=== PATIENT | female | born 1935 | race Caucasian/White ===

== ENCOUNTER → 2017-04-05 | Outpatient (REF) | payer MEDICARE, OTHER ==
[~2017-04-05] MED LIST: ACET30TAB PO; ALBU1.25 INH; ALEN40TA PO; ASPI1TAB PO; BUDE0.5S6 INH; CALC600T31 PO; CALC600T7 PO; DOCU10CA PO; DOXY150C PO; KEFL500C17 PO; MAGN1TAB25 PO; MAGN400T2 PO; MUCI600T37 PO; OMEP20CA3 PO; OMEP40CA2 PO; PERF20NE2 INH; PRED10PA PO; SIMV20TA2 PO; VESI10TA2 PO
[2017-04-05 19:48] LABS: PERCENT SATURATION 12.9 % (13.2-45.0)
== END ==
LOC: M LAB REF 17:35
PROVIDERS: ATTEND Internal Medicine
DX: D64.9 Anemia, unspecified (principal)

== ENCOUNTER → 2017-04-26 | Outpatient (REF) | payer MEDICARE, OTHER | LOC: M LAB REF 17:47 | PROVIDERS: ATTEND Internal Medicine | DX: D50.9 Iron deficiency anemia, unspecified (principal); R62.7 Adult failure to thrive; L29.8 Other pruritus ==

== ENCOUNTER → 2017-05-26 | Outpatient (REF) | payer MEDICARE, OTHER | LOC: M LAB REF 14:40 | DX: N60.32 Fibrosclerosis of left breast (principal) | CPT/HCPCS: 88305 ==

== ENCOUNTER 2017-06-14 13:03 | Emergency (ER) | payer MEDICARE, OTHER ==
[2017-06-14 14:21] LABS: BASO # 0.1 10^3/uL (0.0-0.2); BASO % 0.5 % (0.0-1.0); EOS # 0.8 10^3/uL (0.0-0.50); EOS % 5.9 % (0.0-3.0); HEMATOCRIT 40.9 % (36.0-47.0); HEMOGLOBIN 13.1 g/dl (12.0-16.0); IMMATURE GRANULOCYTE # 0.1 10^3/uL (0-0); IMMATURE GRANULOCYTE % 0.6 % (0-0); LYMPH % 22.2 % (24.0-44.0); MEAN CORPUSCULAR HEMOGLOBIN 27.5 pg (27.0-33.0); MEAN CORPUSCULAR VOLUME 85.7 fl (80.0-96.0); MONO % 7.4 % (0.0-5.0); NEUTROPHILS # 8.6 10^3/uL (1.8-7.7); NEUTROPHILS % 63.4 % (36.0-66.0); PLATELET COUNT, AUTOMATED 280 10^3/uL (150-450); RED BLOOD COUNT 4.77 10^6/uL (4.00-5.40); RED CELL DISTRIBUTION WIDTH 15.2 % (11.5-14.5); WHITE BLOOD COUNT 13.6 10^3/uL (4.0-10.0)
[2017-06-14 14:37] LABS: ANION GAP 3 MEQ/L (8-16); BLOOD UREA NITROGEN 17 MG/DL (7-18); CALCIUM LEVEL 8.7 MG/DL (8.8-10.2); CARBON DIOXIDE LEVEL 33 MEQ/L (21-32); CHLORIDE LEVEL 106 MEQ/L (98-107); CREATININE FOR GFR 0.75 MG/DL (0.55-1.30); GLOMERULAR FILTRATION RATE > 60.0 (>32); GLUCOSE, FASTING 114 MG/DL (70-100); POTASSIUM SERUM 3.8 MEQ/L (3.5-5.1); SODIUM LEVEL 142 MEQ/L (136-145)
[2017-06-14] MEDS: CEFTRIAXONE SOD 1 GM in APPROPRIATE DILUENT 1 EA IV (15:04)
== END 2017-06-14 16:19 | disposition home or self-care (01) ==
LOC: M ED 13:03
DX: L03.114 Cellulitis of left upper limb (principal); J44.9 Chronic obstructive pulmonary disease, unspecified; J45.909 Unspecified asthma, uncomplicated; Z79.82 Long term (current) use of aspirin; Z79.899 Other long term (current) drug therapy; Z88.1 Allergy status to other antibiotic agents
CPT/HCPCS: 80048

== ENCOUNTER 2017-06-15 05:43 | Emergency (ER) | payer MEDICARE, OTHER ==
[2017-06-15] MEDS: CEFTRIAXONE SOD 2 GM in APPROPRIATE DILUENT 1 EA IV (06:15)
== END 2017-06-15 07:19 | disposition home or self-care (01) ==
LOC: M ED 05:43
DX: Z51.89 Encounter for other specified aftercare (principal); L03.114 Cellulitis of left upper limb; J44.9 Chronic obstructive pulmonary disease, unspecified; K21.9 Gastro-esophageal reflux disease without esophagitis; Z87.891 Personal history of nicotine dependence; Z79.82 Long term (current) use of aspirin; Z79.899 Other long term (current) drug therapy; Z88.1 Allergy status to other antibiotic agents
CPT/HCPCS: 96374; 99284

== ENCOUNTER → 2017-06-21 | Outpatient (REF) | payer MEDICARE, OTHER ==
[2017-06-21 14:12] LABS: C REACTIVE PROTEIN QUANTITATIV < 0.30 MG/DL (0.00-0.30)
== END ==
LOC: M LAB REF 13:52
DX: L03.114 Cellulitis of left upper limb (principal)
CPT/HCPCS: 86140

== ENCOUNTER 2017-07-04 08:06 | Day surgery (SDC) | payer MEDICARE, OTHER ==
[~2017-07-04 08:06] MED LIST changes: -ACET30TAB PO; -ALBU1.25 INH; -ALEN40TA PO; -ASPI1TAB PO; -BUDE0.5S6 INH; -CALC600T31 PO; -CALC600T7 PO; -DOCU10CA PO; -DOXY150C PO; -KEFL500C17 PO; +LIDOCAINE 1% MDV 20ML VIAL As Ordered; +LIDOCAINE 2% INJ 100 MG/5 ML SDV (FOR ANES.) As Ordered; -MAGN1TAB25 PO; -MAGN400T2 PO; -MUCI600T37 PO; -OMEP20CA3 PO; -OMEP40CA2 PO; -PERF20NE2 INH; -PRED10PA PO; +PROPOFOL 200 MG/20 ML VIAL As Ordered; -SIMV20TA2 PO; -VESI10TA2 PO
[2017-07-04] MEDS ORDERED: NS 1,000 ML IV (09:45)
[2017-07-04] MEDS ORDERED: PROPOFOL 200 MG/20 ML VIAL As Ordered (10:19)
[2017-07-04] MEDS ORDERED: LIDOCAINE 1% MDV 20ML VIAL As Ordered (10:19)
[2017-07-04] MEDS ORDERED: GLYCOPYRROLATE INJ 0.2 MG/ML 2 ML VIAL As Ordered (10:30)
== END 2017-07-04 11:27 | disposition home or self-care (01) ==
LOC: M OPP 08:06
DX: D50.9 Iron deficiency anemia, unspecified (principal); K64.8 Other hemorrhoids; K57.30 Diverticulosis of large intestine without perforation or abscess without bleeding; K44.9 Diaphragmatic hernia without obstruction or gangrene; J45.909 Unspecified asthma, uncomplicated; K21.9 Gastro-esophageal reflux disease without esophagitis; Z78.0 Asymptomatic menopausal state; Z79.82 Long term (current) use of aspirin; Z79.899 Other long term (current) drug therapy; Z88.1 Allergy status to other antibiotic agents; Z91.048 Other nonmedicinal substance allergy status; Z87.891 Personal history of nicotine dependence
CPT/HCPCS: 45378

== ENCOUNTER → 2017-12-08 | Outpatient (REF) | payer MEDICARE, OTHER ==
[2017-12-08 20:42] LABS: ATYPICAL LYMPH 2 % (0-5); BANDS 2 % (< 11); BASOPHILS 2 % (0-4); EOSINOPHILS 1 % (0-5); LYMPHOCYTES 13 % (16-52); NEUTROPHILS 80 % (35-75)
[2017-12-08 20:44] LABS: PLATELET ESTIMATE NORMAL (NORMAL)
== END ==
LOC: M LAB REF 17:44
DX: D72.829 Elevated white blood cell count, unspecified (principal)
CPT/HCPCS: 85007

== ENCOUNTER 2018-08-28 09:56 | Inpatient (IN) | payer MEDICARE, OTHER ==
[~2018-08-28] VITALS: Ht 154.9 cm; Wt 81.1 kg
[~2018-08-28 09:56] MED LIST changes: +ACET-716 PO; +ALBU1.25 INH; +ALEN40TA2 PO; +ASPI81TA26 PO; +BUDE0.5S6 INH; +CALC600T31 PO; +CALC600T7 PO; +DOCU10CA PO; +DOXY150C PO; +FERR324T2 PO; +FISH500C PO; +GERI8.6T PO; +KEFL500C17 PO; -LIDOCAINE 1% MDV 20ML VIAL As Ordered; -LIDOCAINE 2% INJ 100 MG/5 ML SDV (FOR ANES.) As Ordered; +MAGN1TAB26 PO; +MAGN400T2 PO; +MUCI600T37 PO; +OMEP20CA3 PO; +OMEP40CA2 PO; +PERF20NE2 INH; +PRED10PA PO; -PROPOFOL 200 MG/20 ML VIAL As Ordered; +SIMV20TA2 PO; +SIMV40TA2 PO; +SPIR1CAP PO; +VESI10TA2 PO; +VITAMIN D 3 PO
[2018-08-28] MEDS ORDERED: methylPREDNISolone INJ 125 MG/2 ML VIAL (J2930) IV ONE (10:30)
--- NOTE | 2018-08-28 10:55 | REP ---
Portable chest x-ray: Single view. History: Dyspnea and cough. Comparison study: January 27, 2015. Findings: EKG monitoring electrodes overlie the chest. The heart is enlarged unchanged. Pulmonary vasculature is slightly cephalized. The left hemidiaphragm remains somewhat elevated. Pleural angles are sharp. Impression: Cardiomegaly. No infiltrates seen. Cephalization of the pulmonary vasculature. Electronically Signed by Niels Cruz MD 08/28/2018 10:46 A
[2018-08-28] MEDS: IPRATROPIUM 0.5MG/ALBUTEROL 2.5MG INH SOL UD 3ML (DUONEB)(J7620) NEB PRN ×2 (11:04→11:12)
[2018-08-28 11:06] LABS: BASO % 0.5 % (0.0-1.0); EOS # 0.5 10^3/uL (0.0-0.50); EOS % 6.4 % (0.0-3.0); HEMATOCRIT 39.8 % (36.0-47.0); HEMOGLOBIN 12.7 g/dl (12.0-15.5); LYMPH # 2.6 10^3/uL (1.5-4.5); LYMPH % 30.9 % (24.0-44.0); MEAN CORPUSCULAR HEMOGLOBIN 28.7 pg (27.0-33.0); MEAN CORPUSCULAR HGB CONC 31.9 g/dl (32.0-36.5); MONO # 0.7 10^3/uL (0.0-0.8); MONO % 7.9 % (0.0-5.0); NEUTROPHILS # 4.5 10^3/uL (1.8-7.7); NEUTROPHILS % 53.8 % (36.0-66.0); PLATELET COUNT, AUTOMATED 257 10^3/uL (150-450); RED BLOOD COUNT 4.42 10^6/uL (4.00-5.40); WHITE BLOOD COUNT 8.4 10^3/uL (4.0-10.0)
[2018-08-28 11:31] LABS: ABG BASE EXCESS 3.8 (-2.0-2.0); ABG O2 SATURATION 95.9 % (95.0-99.0); ABG PARTIAL PRESSURE O2 83.6 mmHg (75.0-100.0); ABG STANDARD HCO3 27.8 MEQ/L (22.0-26.0); ABG TOTAL CO2 30.4 MEQ/L (23.0-31.0); ABG pH (ARTERIAL) 7.417 UNITS (7.350-7.450)
[2018-08-28 11:43] LABS: INFLUENZA A AMPLIFICATION NEGATIVE (NEGATIVE); INFLUENZA B AMPLIFICATION NEGATIVE (NEGATIVE)
[2018-08-28 11:53] LABS: ALBUMIN 3.3 GM/DL (3.2-5.2); ALT/SGPT 20 U/L (12-78); BILIRUBIN,DIRECT < 0.1 MG/DL (0.0-0.2); BILIRUBIN,TOTAL 0.4 MG/DL (0.2-1.0); BLOOD UREA NITROGEN 7 MG/DL (7-18); CALCIUM LEVEL 9.1 MG/DL (8.8-10.2); CARBON DIOXIDE LEVEL 27 MEQ/L (21-32); CHLORIDE LEVEL 106 MEQ/L (98-107); GLOMERULAR FILTRATION RATE > 60.0 (>32); GLUCOSE, FASTING 93 MG/DL (70-100); NT-PRO BNP 71 PG/ML (<450); POTASSIUM SERUM 4.2 MEQ/L (3.5-5.1); SODIUM LEVEL 139 MEQ/L (136-145); TOTAL PROTEIN 6.8 GM/DL (6.4-8.2)
[2018-08-28 12:47] LABS: CPK CREATINE PHOSPHOKINASE 94 U/L (26-192); MB/CK RELATIVE INDEX 2.02 (< OR =4); TROPONIN I < 0.02 NG/ML (< 0.10)
[2018-08-28] MEDS ORDERED: ALBUTEROL SULFATE 2.5 MG/0.5 ML INH NEB SOLN NEB PRN (14:15)
[2018-08-28] MEDS ORDERED: MUCI600T31 PO (14:16)
[2018-08-28] MEDS ORDERED: CALC600T60 PO (14:16)
[2018-08-28] MEDS ORDERED: MOXI1TAB PO (14:17)
[2018-08-28] MEDS ORDERED: DOXYCYCLINE HYCLATE 100 MG in D5W MINI-BAG PLUS 100 ML IV ONE (14:30)
[2018-08-28] MEDS ORDERED: cefTRIAXone SOD 1 GM in D5W 50 ML IV ONE (15:30)
--- NOTE | 2018-08-28 15:41 | HPE ---
DATE OF ADMISSION: 08/28/2018 PRIMARY CARE PROVIDER: Dr. Sara Hassan ATTENDING PHYSICIAN: Hospitalist group. PRESTRESSED CONCRETE LABORER: Dr. Canales CHIEF COMPLAINT: Exacerbation of chronic obstructive pulmonary disease (COPD). HISTORY: Maggi Lozada is an 82-year-old who was admitted to the hospitalist service with shortness of breath. She follows with Dr. Canales as an outpatient. She has been having cough, shortness of breath and increase in lower extremity edema for the past several days. Apparently called [facility] today and was prescribed an antibiotic over the phone but came to the emergency room where she was felt to warrant hospitalization. She did not respond to the measures in the emergency room and so is going to be admitted for treatment of COPD. She is on chronic supplemental oxygen, suggesting chronic respiratory failure. She cannot remember the last time that she was on systemic steroids. She has a history of hyperlipidemia, gastroesophageal reflux disease (GERD), urinary incontinence. SURGICAL HISTORY: 1. Cataracts. 2. Appendectomy. SOCIAL HISTORY: Long smoking history, quit about 15 years ago. No alcohol use. FAMILY HISTORY: Noncontributory. ALLERGIES: CIPRO gave her hives, BACTRIM gave her hives, KEFLEX gives her hives. REVIEW OF SYSTEMS: No hemoptysis, chest pain, palpitations, orthopnea, rectal bleeding, urinary bleeding, epistaxis. MEDICATIONS: - Tylenol with codeine every 4 hours as needed - aspirin 81 mg daily - budesonide 45 mg nebulized twice a day - calcium - ferrous sulfate 325 mg daily - Perforomist 20 mcg nebulized twice a day - magnesium oxide 400 mg twice a day - fish oil - omeprazole 20 mg daily - simvastatin 40 mg daily - VESIcare 10 mg daily - Spiriva one inhalation daily She has moxifloxacin on her medication list but I do not think that she is actually taking that, which was called in. PHYSICAL EXAMINATION: VITAL SIGNS: As per flow sheet. GENERAL APPEARANCE: She is resting comfortably in the bed. Speaking in full sentences. Elderly. Wearing supplemental oxygen. HEENT: Pupils are equal and reactive to light. Tympanic membranes clear. Oropharynx clear. NECK: No masses. LUNGS: Decreased breath sounds in all villa, a few wheezes. HEART: Regular rate and rhythm. 1/6 systolic ejection murmur. ABDOMEN: Soft, nontender. No masses. EXTREMITIES: 1+ peripheral edema. Moves arms and legs with equal strength. LABORATORIES: White count 8.4, hemoglobin 12.7, platelets 257. Sodium 139, potassium 4.2, BUN 7, creatinine 0.8. ABG was 7.41/46/83. Chest x-ray showed no active disease. Influenza screen negative. IMPRESSION: 1. Exacerbation of chronic obstructive pulmonary disease (COPD). PLAN: 1. She will be admitted to a medical bed. Treat with intravenous steroid with Solu-Medrol 40 mg every 12 hours and nebulized bronchodilator. Empiric antibiotic therapy with Rocephin 1 gram IV daily and doxycycline 100 mg twice a day. I will hold off on pulmonary consult for now, she really does not look that ill. 2. Hyperlipidemia. Continue simvastatin 40 mg daily. 3. Urinary incontinence. Continue VESIcare 10 mg daily. The hospitalist will assume her care in the morning.
[2018-08-28 18:00] VITALS: BP 167/76
[2018-08-28] MEDS: IPRATROPIUM 0.5MG/ALBUTEROL 2.5MG INH SOL UD 3ML (DUONEB)(J7620) NEB SCH (21:33)
[2018-08-28] MEDS: methylPREDNISolone INJ 125 MG/2 ML VIAL (J2930) IV SCH (21:38)
[2018-08-28 22:00] VITALS: BP 154/60
--- NOTE | 2018-08-29 01:10 | ECGEPIP ---
Stationary ECG Study [facility] - ED Test Date: 2018-08-28 Pat Name: RHONDA STEVENSON Department: Room: - Gender: F [employer] Engineer: : 1935 Requested By: BETTYE MANCIA PA-C. Order Number: [id number] Reading MD: Seven Castillo Measurements Intervals Early Rate: 51 P: 58 ND: 150 QRS: 21 QRSD: 75 T: 38 QT: 432 QTc: 398 Interpretive Statements SINUS BRADYCARDIA NONSPECIFIC T-WAVE ABNORMALITY Electronically Signed On 08-29-2018 1:10:27 EDT by Seven Castillo
[2018-08-29] MEDS: IPRATROPIUM 0.5MG/ALBUTEROL 2.5MG INH SOL UD 3ML (DUONEB)(J7620) NEB SCH ×3 (01:38→14:04)
--- NOTE | 2018-08-29 01:39 | ECGEPIP ---
Stationary ECG Study [facility] - ED Test Date: 2018-08-28 Pat Name: RHONDA STEVENSON Department: Room: [place] [address] Gender: F Act Tutor: davon : 1935 Requested By: Shaka Gr Order Number: [id number] Reading MD: Seven Castillo Measurements Intervals [place] Rate: 65 P: 63 [place]: 155 QRS: 17 QRSD: 81 T: 61 QT: 428 QTc: 447 Interpretive Statements SINUS RHYTHM NONSPECIFIC T-WAVE ABNORMALITY INCOMPLETE RIGHT BUNDLE BRANCH BLOCK SIMILAR TO PRIOR ON SAME DATE Electronically Signed On 08-29-2018 1:39:24 EDT by Seven Castillo
[2018-08-29 02:00] VITALS: BP 146/67
[2018-08-29] MEDS: DOXYCYCLINE HYCLATE 100 MG in D5W MINI-BAG PLUS 100 ML IV SCH ×2 (02:35→15:58)
[2018-08-29 06:00] VITALS: BP 139/62
[2018-08-29 07:00] LABS: HEMATOCRIT 39.3 % (36.0-47.0); HEMOGLOBIN 12.7 g/dl (12.0-15.5); MEAN CORPUSCULAR HEMOGLOBIN 29.1 pg (27.0-33.0); MEAN CORPUSCULAR HGB CONC 32.3 g/dl (32.0-36.5); MEAN CORPUSCULAR VOLUME 89.9 fl (80.0-96.0); PLATELET COUNT, AUTOMATED 262 10^3/uL (150-450); RED BLOOD COUNT 4.37 10^6/uL (4.00-5.40); WHITE BLOOD COUNT 13.4 10^3/uL (4.0-10.0)
[2018-08-29 07:22] LABS: BLOOD UREA NITROGEN 9 MG/DL (7-18); CALCIUM LEVEL 8.6 MG/DL (8.8-10.2); CARBON DIOXIDE LEVEL 27 MEQ/L (21-32); CHLORIDE LEVEL 109 MEQ/L (98-107); GLOMERULAR FILTRATION RATE > 60.0 (>32); GLUCOSE, FASTING 152 MG/DL (70-100); POTASSIUM SERUM 3.8 MEQ/L (3.5-5.1); SODIUM LEVEL 143 MEQ/L (136-145)
[2018-08-29] MEDS: methylPREDNISolone INJ 125 MG/2 ML VIAL (J2930) IV SCH (08:51)
[2018-08-29] MEDS ORDERED: ASPIRIN 81 MG ENTERIC TAB PO SCH (09:00)
[2018-08-29] MEDS ORDERED: PANTOPRAZOLE 40MG TAB (PROTONIX) PO SCH (09:00)
[2018-08-29] MEDS ORDERED: ENOXAPARIN 40 MG/0.4 ML SYRINGE (J1650) SC SCH (09:00)
[2018-08-29] MEDS ORDERED: SIMVASTATIN 40 MG TAB PO SCH (09:00)
[2018-08-29] MEDS ORDERED: SOLIFENACIN 5 MG TAB PO SCH (09:00)
[2018-08-29 14:00] VITALS: BP 119/67
[2018-08-29] MEDS ORDERED: cefTRIAXone SOD 1 GM in D5W 50 ML IV SCH (15:00)
[2018-08-29] MEDS ORDERED: PRED20TA PO (15:14)
--- NOTE | 2018-08-29 16:10 | DS.PDOC ---
Discharge Summary General Date of Admission Aug 28, 2018 at 14:10 Date of Discharge 08/29/18 Discharge Summary PROCEDURES PERFORMED DURING STAY: [None]. ADMITTING DIAGNOSES: COPD exacerbation, acute on chronic DISCHARGE DIAGNOSES: COPD exacerbation, acute on chronic GERD Hyperlipidemia Urinary incontinence]. COMPLICATIONS/CHIEF COMPLAINT: Copd Exacerbation. HISTORY OF PRESENT ILLNESS: [Maggi Lozada is an 82-year-old who was admitted to the hospitalist service with shortness of breath. She follows with Dr. Canales as an outpatient. She has been having cough, shortness of breath and increase in lower extremity edema for the past several days. Apparently called [facility] today and was prescribed an antibiotic over the phone but came to the emergency room where she was felt to warrant hospitalization. She did not respond to the measures in the emergency room and so is going to be admitted for treatment of COPD. She is on chronic supplemental oxygen, suggesting chronic respiratory failure. She cannot remember the last time that she was on systemic steroids. She has a history of hyperlipidemia, gastroesophageal reflux disease (GERD), urinary incontinence.]. HOSPITAL COURSE: [82-year-old female with significant past medical history COPD normally sees Dr. zamorano on as outpatient was admitted for COPD exacerbation. Patient was prescribed for moxifloxacin as outpatient without improvement therefore came to emergency room. The emergency room patient was evaluated and admitted for COPD exacerbation. Patient responded well to respiratory treatment and steroid plus antibiotics. Patient today ambulated on her regular 2 L nasal cannula therapy from home without any desaturation. Patient is feeling better. Patient and family agreeable to returning home today. Patient will be discharged home on oral prednisone and advised to resume antibiotic yesterday has at home, nebulizer treatment, and oxygen therapy that was prescribed to her for 2 L nasal cannula. DISCHARGE MEDICATIONS: Please see below. ALLERGIES: Please see below. PHYSICAL EXAMINATION ON DISCHARGE: VITAL SIGNS: Please see below. GENERAL APPEARANCE: She is resting comfortably in the bed. Speaking in full sentences. Elderly. Wearing supplemental oxygen. Family at the bedside. HEENT: Pupils are equal and reactive to light. Tympanic membranes clear. Oropharynx clear. NECK: No masses. LUNGS: Decreased breath sounds in all villa, a minimal few wheezes. HEART: Regular rate and rhythm. 1/6 systolic ejection murmur. ABDOMEN: Soft, nontender. No masses. EXTREMITIES: 1+ peripheral edema. Moves arms and legs with equal strength. LABORATORY DATA: Please see below. IMAGING: [Chest x-ray:Cardiomegaly. No infiltrates seen. Cephalization of the pulmonary vasculature.] PROGNOSIS: [Stable] ACTIVITY: [As tolerated]. DIET: [No added salt] DISCHARGE PLAN: [Please follow up with PCP as outpatient within 1-2 weeks. Please resume home antibiotic, oxygen, and respiratory treatment. Prescription for oral prednisone given. ] DISPOSITION: Home. DISCHARGE INSTRUCTIONS: Please remain complaint with treatment plan and medications, and return to the ER if you experience any problem. DISCHARGE CONDITION: [Stable]. TIME SPENT ON DISCHARGE: Greater than [45] minutes. Vital Signs/I&Os Vital Signs Date Time Temp Pulse Resp B/P (MAP) Pulse Ox O2 Delivery O2 Flow Rate FiO2 08/29/18 14:00 97.5 106 18 119/67 (84) 92 2.0 08/28/18 16:01 Nasal Cannula I&O- Last 24 Hours up to 6 AM 08/29/18 06:00 Intake Total 360 ml Output Total 0 ml Balance 360 ml Laboratory Data Labs 24H Laboratory Tests 2 08/29/18 06:29: Nucleated Red Blood Cells % (auto) 0.0, Anion Gap 7L, Glomerular Filtration Rate > 60.0, Blood Urea Nitrogen 9, Creatinine 0.70, Sodium Level 143, Potassium Level 3.8, Chloride Level 109H, Carbon Dioxide Level 27, Calcium Level 8.6L CBC/BMP Laboratory Tests 08/29/18 06:29 Red Blood Count 4.37, Mean Corpuscular Volume 89.9, Mean Corpuscular Hemoglobin 29.1, Mean Corpuscular Hemoglobin Concent 32.3, Red Cell Distribution Width 12.8, Calcium Level 8.6 L Microbiology Microbiology 08/28/18 Blood Culture - Preliminary, Resulted No growth after 24 hours . All specim... 08/28/18 Blood Culture - Preliminary, Resulted No growth after 24 hours . All specim... 08/28/18 Gram Stain - Final, Resulted 08/28/18 Sputum Culture, Resulted Pending Discharge Medications Scheduled Aspirin (Aspirin EC) 81 Mg Tab, 81 MG PO DAILY, (Reported) Budesonide (Budesonide) 0.5 Mg/2 Ml Neb, 0.5 MG INH BID, (Reported) Calcium Carbonate (Calcium) 600 Mg Tablet, 600 MG PO BID, (Reported) Ferrous Sulfate (Ferrous Sulfate) 324 Mg Tab, 324 MG PO DAILY, (Reported) Formoterol Fumarate (Perforomist) 20 Mcg/2 Ml Neb, 20 MCG INH BID, (Reported) Guaifenesin (Mucinex) 600 Mg Tab.er.12h, 600 MG PO BID, (Reported) Magnesium Oxide (Magnesium Oxide) 400 Mg Tab, 400 MG PO BID, (Reported) Moxifloxacin HCl (Moxifloxacin HCl) 400 Mg Tablet, 400 MG PO DAILY, (Reported) TO TAKE X 10 DAYS. 08/28/18 = 5TH DAY OF MED. [place]-3/Dha/Epa/Fish Oil (Fish Oil 500 mg Softgel) 500 Mg Cap, 1 CAP PO BID, (Reported) Omeprazole (Omeprazole) 20 Mg Cap, 20 MG PO DAILY, (Reported) Prednisone (Prednisone) 20 Mg Tablet, 40 MG PO DAILY Simvastatin (Simvastatin) 40 Mg Tab, 40 MG PO DAILY, (Reported) Solifenacin Succinate (Vesicare) 10 Mg Tab, 10 MG PO DAILY, (Reported) Tiotropium [place] (Spiriva) 18 Mcg Cap, 1 PUFF PO DAILY, (Reported) Scheduled PRN Acetaminophen with Codeine (Acetaminophen-Cod #3 Tablet) 1 Each Tab, 1 TAB PO Q4HP PRN for PAIN, (Reported) Allergies Coded Allergies: ciprofloxacin (Verified Allergy, Intermediate, HIVES, 08/28/18) sulfamethoxazole (Verified Allergy, Intermediate, HIVES, 08/28/18) trimethoprim (Verified Allergy, Intermediate, HIVES, 08/28/18) HUGO SANCHEZ MD Aug 29, 2018 16:10
== END 2018-08-29 17:23 | disposition home or self-care (01) | DRG 191 ==
LOC: M ED 09:56 → M ED INP 14:10 → M MS4PR 18:00
PROVIDERS: ADMIT Family Medicine; ATTEND Internal Medicine
DX: J44.1 Chronic obstructive pulmonary disease with (acute) exacerbation (principal); J96.10 Chronic respiratory failure, unspecified whether with hypoxia or hypercapnia; K21.9 Gastro-esophageal reflux disease without esophagitis; E78.5 Hyperlipidemia, unspecified; R32 Unspecified urinary incontinence; Z79.899 Other long term (current) drug therapy; Z79.82 Long term (current) use of aspirin; Z88.2 Allergy status to sulfonamides; Z88.8 Allergy status to other drugs, medicaments and biological substances; Z87.891 Personal history of nicotine dependence

== ENCOUNTER 2018-11-07 09:22 | Emergency (ER) | payer MEDICARE, OTHER ==
[~2018-11-07] VITALS: Ht 152.4 cm; Wt 79.4 kg
[~2018-11-07 09:22] MED LIST changes: +CALC600T60 PO; +MOXI1TAB PO; +MUCI600T31 PO; +OMEP1CAP73 PO; -OMEP20CA3 PO; -OMEP40CA2 PO; +OMEP40CA97 PO; +PRED20TA PO; -SIMV20TA2 PO; +SIMV20TA22 PO; -SIMV40TA2 PO; +SIMV40TA20 PO
[2018-11-07] MEDS ORDERED: ACETAMINOPH W/CODEINE #3 TAB UD PO ONE (10:30)
[2018-11-07 10:49] LABS: BASO # 0.1 10^3/uL (0.0-0.2); BASO % 0.6 % (0.0-1.0); EOS # 0.6 10^3/uL (0.0-0.50); HEMATOCRIT 40.6 % (36.0-47.0); HEMOGLOBIN 13.4 g/dl (12.0-15.5); LYMPH # 2.8 10^3/uL (1.5-4.5); LYMPH % 23.7 % (24.0-44.0); MONO # 0.8 10^3/uL (0.0-0.8); MONO % 6.8 % (0.0-5.0); NEUTROPHILS # 7.4 10^3/uL (1.8-7.7); NEUTROPHILS % 63.6 % (36.0-66.0); PLATELET COUNT, AUTOMATED 271 10^3/uL (150-450); RED BLOOD COUNT 4.46 10^6/uL (4.00-5.40); WHITE BLOOD COUNT 11.7 10^3/uL (4.0-10.0)
[2018-11-07 11:00] LABS: INR 0.99; PROTHROMBIN TIME 12.8 SECONDS (11.8-14.0)
[2018-11-07 11:13] LABS: ALBUMIN 3.6 GM/DL (3.2-5.2); ALT/SGPT 30 U/L (12-78); BILIRUBIN,TOTAL 0.3 MG/DL (0.2-1.0); BLOOD UREA NITROGEN 11 MG/DL (7-18); CALCIUM LEVEL 8.8 MG/DL (8.8-10.2); CARBON DIOXIDE LEVEL 28 MEQ/L (21-32); CHLORIDE LEVEL 107 MEQ/L (98-107); CREATININE FOR GFR 0.73 MG/DL (0.55-1.30); ERYTHROCYTE SEDIMENTATION RATE 9 mm/hr (0-30); GLOMERULAR FILTRATION RATE > 60.0 (>32); GLUCOSE, FASTING 95 MG/DL (70-100); POTASSIUM SERUM 4.3 MEQ/L (3.5-5.1); SODIUM LEVEL 141 MEQ/L (136-145); TOTAL PROTEIN 6.7 GM/DL (6.4-8.2)
--- NOTE | 2018-11-07 11:31 | REP ---
REASON: Pain and swelling. COMPARISON: None. TECHNIQUE: Multiple ultrasonographic images of the deep venous structures of the thigh were obtained from the common femoral vein to the popliteal vein along with Doppler interrogation and color flow Doppler images. FINDINGS: There is no abnormal echogenic material seen within any of the visualized deep venous structures that would suggest acute thrombosis. Coaptation is unremarkable throughout. Doppler interrogation shows an expected response to respiratory variability and augmentation. The color flow images show what appears to be a normal vascular pattern throughout. IMPRESSION: There is no ultrasonographic evidence of deep venous thrombosis involving any of the visualized deep venous structures of the right thigh, as described above. Electronically Signed by Yayo Villarreal DO 11/07/2018 04:06 P
--- NOTE | 2018-11-07 11:32 | REP ---
Clinical: Pain. Technique: AP, bilateral oblique and lateral views of the right ankle. Findings: Age-related degenerative changes are appreciated. No soft tissue swelling. No acute fracture. Ankle mortise intact. Impression: Generalized age-related changes. No obvious acute findings. Electronically Signed by Savage Hall MD 11/07/2018 11:23 A
--- NOTE | 2018-11-07 11:34 | REP ---
Clinical: Heel pain. Technique: AP, lateral, bilateral oblique views of the right foot. Findings: Age related osteopenia and generalized degenerative changes are appreciated. No acute fracture or dislocation. Lateral view demonstrates moderate calcaneal heal spur as well as calcifications at the Achilles insertion on the calcaneus. Impression: Generalized degenerative changes as described above. No acute fracture dislocation. Electronically Signed by Savage Hall MD 11/07/2018 11:25 A
[2018-11-07] MEDS ORDERED: GABA-1171 PO (11:44)
[2018-11-07] MEDS ORDERED: PRED20TA PO (11:44)
[2018-11-07 11:55] VITALS: BP 143/63
== END 2018-11-07 11:59 | disposition home or self-care (01) ==
LOC: M ED 09:22
DX: M79.671 Pain in right foot (principal); J44.9 Chronic obstructive pulmonary disease, unspecified; J45.909 Unspecified asthma, uncomplicated; E78.00 Pure hypercholesterolemia, unspecified; K21.9 Gastro-esophageal reflux disease without esophagitis; Z79.899 Other long term (current) drug therapy; Z79.82 Long term (current) use of aspirin; Z88.1 Allergy status to other antibiotic agents; Z88.2 Allergy status to sulfonamides; Z88.8 Allergy status to other drugs, medicaments and biological substances; Z87.891 Personal history of nicotine dependence

== ENCOUNTER 2018-12-30 22:28 | Emergency (ER) | payer MEDICARE, OTHER ==
[~2018-12-30] VITALS: Ht 154.9 cm; Wt 78.2 kg
[~2018-12-30 22:28] MED LIST changes: +GABA-1171 PO; -OMEP1CAP73 PO; +OMEP20CA4 PO; +OMEP40CA2 PO; -OMEP40CA97 PO; +SIMV20TA2 PO; -SIMV20TA22 PO; +SIMV40TA2 PO; -SIMV40TA20 PO
[2018-12-31 00:09] LABS: BASO # 0.1 10^3/uL (0.0-0.2); BASO % 0.7 % (0.0-1.0); EOS # 0.5 10^3/uL (0.0-0.50); HEMATOCRIT 39.8 % (36.0-47.0); LYMPH # 2.8 10^3/uL (1.5-4.5); LYMPH % 20.8 % (24.0-44.0); MEAN CORPUSCULAR HEMOGLOBIN 29.1 pg (27.0-33.0); MEAN CORPUSCULAR HGB CONC 32.7 g/dl (32.0-36.5); MEAN CORPUSCULAR VOLUME 89.2 fl (80.0-96.0); MONO # 1.1 10^3/uL (0.0-0.8); MONO % 8.3 % (0.0-5.0); NEUTROPHILS % 65.6 % (36.0-66.0); PLATELET COUNT, AUTOMATED 284 10^3/uL (150-450); RED BLOOD COUNT 4.46 10^6/uL (4.00-5.40); WHITE BLOOD COUNT 13.7 10^3/uL (4.0-10.0)
[2018-12-31 00:15] LABS: ERYTHROCYTE SEDIMENTATION RATE 106 mm/hr (0-30)
[2018-12-31 00:29] LABS: BLOOD UREA NITROGEN 15 MG/DL (7-18); C REACTIVE PROTEIN QUANTITATIV 0.92 MG/DL (0.00-0.30); CALCIUM LEVEL 9.3 MG/DL (8.8-10.2); CARBON DIOXIDE LEVEL 28 MEQ/L (21-32); CHLORIDE LEVEL 106 MEQ/L (98-107); CREATININE FOR GFR 0.69 MG/DL (0.55-1.30); GLOMERULAR FILTRATION RATE > 60.0 (>32); GLUCOSE, FASTING 115 MG/DL (70-100); SODIUM LEVEL 140 MEQ/L (136-145)
[2018-12-31] MEDS ORDERED: DOXYCYCLINE HYCLATE 100 MG TAB PO ONE (00:45)
[2018-12-31] MEDS ORDERED: DOXY100C37 PO ×3 (00:47→00:59)
[2018-12-31] MEDS ORDERED: PRED20TA PO (00:50)
[2018-12-31 01:01] VITALS: BP 132/59
--- NOTE | 2018-12-31 10:51 | REP ---
Right forearm two views : There is no fracture or dislocation. Mineralization and joint spaces are normal. There are no calcifications or foreign bodies. Impression: Negative right forearm . Electronically Signed by Raciel Osei MD 12/31/2018 08:10 A
== END 2018-12-31 01:02 | disposition home or self-care (01) ==
LOC: M ED 22:28
DX: L03.113 Cellulitis of right upper limb (principal); J45.909 Unspecified asthma, uncomplicated; E78.5 Hyperlipidemia, unspecified; K21.9 Gastro-esophageal reflux disease without esophagitis; Z88.2 Allergy status to sulfonamides; Z88.1 Allergy status to other antibiotic agents; Z87.891 Personal history of nicotine dependence; Z79.899 Other long term (current) drug therapy; Z79.82 Long term (current) use of aspirin; Z79.51 Long term (current) use of inhaled steroids; Z79.52 Long term (current) use of systemic steroids

== ENCOUNTER → 2019-01-22 | Outpatient (REF) | payer MEDICARE, OTHER ==
[~2019-01-22] MED LIST changes: +DOXY100C37 PO
== END ==
LOC: M LAB REF 18:59
PROVIDERS: ATTEND Nurse Practitioner Family
DX: L03.90 Cellulitis, unspecified (principal)

== ENCOUNTER 2019-03-30 08:08 | Emergency (ER) | payer MEDICARE, OTHER ==
[~2019-03-30] VITALS: Ht 154.9 cm; Wt 82.0 kg
[~2019-03-30 08:08] MED LIST changes: -OMEP40CA2 PO; +OMEP40CA97 PO
--- NOTE | 2019-03-30 09:04 | REP ---
Right knee series: Five views. History: Injury in a fall. Findings: Five views of the right knee demonstrate normal bones, joints and soft tissues. There is some diffuse osteopenia. No fracture, subluxation, or evidence of joint effusion is seen. Impression: Negative right knee radiographs. No fracture noted. Electronically Signed by Niels Cruz MD 03/30/2019 08:56 A
--- NOTE | 2019-03-30 09:04 | REP ---
Right tib-fib series: Four views. History: Injury in a fall. Findings: Four views of the right tibia and fibula demonstrate mild vascular calcification. Achilles and plantar calcaneal spurring is noted. No fracture is seen. No bony destructive lesion. Impression: No fracture noted. Electronically Signed by Niels Cruz MD 03/30/2019 08:57 A
[2019-03-30 09:37] VITALS: BP 166/86
== END 2019-03-30 09:51 | disposition home or self-care (01) ==
LOC: M ED 08:08
DX: S83.421A Sprain of lateral collateral ligament of right knee, initial encounter (principal); X50.1XXA Overexertion from prolonged static or awkward postures, initial encounter; Y92.091 Bathroom in other non-institutional residence as the place of occurrence of the external cause; Y93.89 Activity, other specified; Y99.9 Unspecified external cause status; Z79.82 Long term (current) use of aspirin; Z79.899 Other long term (current) drug therapy; Z88.1 Allergy status to other antibiotic agents; Z88.8 Allergy status to other drugs, medicaments and biological substances

== ENCOUNTER 2019-09-20 22:49 | Emergency (ER) | payer MEDICARE, OTHER ==
[~2019-09-20] VITALS: Ht 154.9 cm; Wt 79.5 kg
[~2019-09-20 22:49] MED LIST changes: +OMEP1CAP73 PO; -OMEP20CA4 PO; -SIMV20TA2 PO; +SIMV20TA22 PO; -SIMV40TA2 PO; +SIMV40TA20 PO
[2019-09-20 23:43] LABS: BASO # 0.1 10^3/uL (0.0-0.2); BASO % 0.6 % (0.0-1.0); EOS # 0.8 10^3/uL (0.0-0.5); EOS % 6.9 % (0.0-3.0); HEMATOCRIT 38.9 % (36.0-47.0); HEMOGLOBIN 12.8 g/dl (12.0-15.5); LYMPH # 2.8 10^3/uL (1.5-5.0); LYMPH % 23.3 % (24.0-44.0); MEAN CORPUSCULAR HEMOGLOBIN 29.8 pg (27.0-33.0); MEAN CORPUSCULAR HGB CONC 32.9 g/dl (32.0-36.5); MEAN CORPUSCULAR VOLUME 90.7 fl (80.0-96.0); MONO # 0.9 10^3/uL (0.0-0.8); MONO % 7.5 % (0.0-5.0); NEUTROPHILS # 7.5 10^3/uL (1.5-8.5); NEUTROPHILS % 61.3 % (36.0-66.0); PLATELET COUNT, AUTOMATED 268 10^3/uL (150-450); RED BLOOD COUNT 4.29 10^6/uL (4.00-5.40); WHITE BLOOD COUNT 12.2 10^3/uL (4.0-10.0)
[2019-09-21 00:05] LABS: ERYTHROCYTE SEDIMENTATION RATE 8 mm/hr (0-30)
[2019-09-21] MEDS ORDERED: PIPERACILLIN/TAZOBACTAM SOD 3.375 GM in D5W MINI-BAG PLUS 50 ML IV ONE (00:15)
[2019-09-21 00:20] LABS: ALBUMIN 3.4 GM/DL (3.2-5.2); ALT/SGPT 24 U/L (12-78); BILIRUBIN,DIRECT 0.1 MG/DL (0.0-0.2); BILIRUBIN,TOTAL 0.4 MG/DL (0.2-1.0); BLOOD UREA NITROGEN 18 MG/DL (7-18); C REACTIVE PROTEIN QUANTITATIV < 0.30 MG/DL (0.00-0.30); CARBON DIOXIDE LEVEL 29 MEQ/L (21-32); CHLORIDE LEVEL 107 MEQ/L (98-107); CREATININE FOR GFR 0.68 MG/DL (0.55-1.30); GLOMERULAR FILTRATION RATE > 60.0 (>32); GLUCOSE, FASTING 107 MG/DL (70-100); POTASSIUM SERUM 3.6 MEQ/L (3.5-5.1); SODIUM LEVEL 141 MEQ/L (136-145); TOTAL PROTEIN 6.4 GM/DL (6.4-8.2)
[2019-09-21] MEDS ORDERED: KEFL500C17 PO (01:10)
[2019-09-21] MEDS ORDERED: CEPHALEXIN 500 MG CAP PO ONE (01:15)
[2019-09-21 01:33] VITALS: BP 132/68
[2019-09-22] MEDS ORDERED: BACI500O21 TOP (17:09)
== END 2019-09-21 01:35 | disposition home or self-care (01) ==
LOC: M ED 22:49
DX: L03.114 Cellulitis of left upper limb (principal); E78.5 Hyperlipidemia, unspecified; K21.9 Gastro-esophageal reflux disease without esophagitis; J44.9 Chronic obstructive pulmonary disease, unspecified; Z87.891 Personal history of nicotine dependence; Z88.1 Allergy status to other antibiotic agents; Z88.2 Allergy status to sulfonamides; Z79.899 Other long term (current) drug therapy; Z79.82 Long term (current) use of aspirin; Z79.51 Long term (current) use of inhaled steroids
CPT/HCPCS: 80048; 80076; 83605; 85025; 85652; 86140; 87040; 96365; 99284; J2543

== ENCOUNTER 2019-09-22 16:46 | Emergency (ER) | payer MEDICARE, OTHER ==
[~2019-09-22] VITALS: Ht 154.9 cm; Wt 80.4 kg
[2019-09-22 16:46] VITALS: BP 161/75
[2019-09-22] MEDS ORDERED: BACI500O21 TOP (17:09)
== END 2019-09-22 17:33 | disposition home or self-care (01) ==
LOC: M ED 16:46
DX: L03.114 Cellulitis of left upper limb (principal); J44.9 Chronic obstructive pulmonary disease, unspecified; E78.5 Hyperlipidemia, unspecified; Z79.899 Other long term (current) drug therapy; Z79.82 Long term (current) use of aspirin; Z88.1 Allergy status to other antibiotic agents; Z88.2 Allergy status to sulfonamides; Z88.8 Allergy status to other drugs, medicaments and biological substances; Z87.891 Personal history of nicotine dependence

== ENCOUNTER 2020-01-31 10:19 | Outpatient (CLI) | payer MEDICARE, OTHER ==
[~2020-01-31] VITALS: Ht 154.9 cm; Wt 82.2 kg
[~2020-01-31 10:19] MED LIST changes: +BACI500O21 TOP; +CALC-212 PO; -CALC600T7 PO
[2020-01-31 10:20] VITALS: BP 176/73
[2020-01-31] MEDS ORDERED: ZOLEDRONIC ACID 5 MG in IV 1 EA IV ONE (10:30)
[2020-01-31] MEDS ORDERED: ZOLEDRONIC ACID 5 MG 100ML IVBAG (RECLAST)(J3489 PER 1MG) As Ordered ONE (10:35)
[2020-01-31 11:40] VITALS: BP 139/67
== END 2020-01-31 11:40 | disposition home or self-care (01) ==
LOC: M INFU 10:19
PROVIDERS: ATTEND Internal Medicine
DX: M85.80 Other specified disorders of bone density and structure, unspecified site (principal); Z88.1 Allergy status to other antibiotic agents; Z88.2 Allergy status to sulfonamides; Z88.8 Allergy status to other drugs, medicaments and biological substances
CPT/HCPCS: 96365; J3489

== ENCOUNTER → 2020-04-17 | Outpatient (CLI) | payer MEDICARE, OTHER ==
--- NOTE | 2020-04-17 15:41 | REP ---
INDICATION: CHRONIC OBSTRUCTIVE PULMONARY DISEASE. COMPARISON: Comparison study August 28, 2018. TECHNIQUE: Two views.. FINDINGS: There is linear opacity in the left lower lobe and lingula consistent with fibrosis and/or discoid atelectasis. This is new. The lungs are otherwise well inflated and free of infiltrate. Pleural angles are sharp. There are degenerative changes in the thoracic spine and aorta. Heart size is borderline. Pulmonary vasculature is not increased. IMPRESSION: Linear platelike atelectasis versus fibrosis in the left big a base involving the lingula and left lower lobe. Otherwise no acute disease.. <Electronically signed by Jose Carlos Cruz > 04/17/20 [id number]
== END ==
LOC: M RAD 13:35
PROVIDERS: ATTEND Internal Medicine Pulmonary Disease
DX: J44.9 Chronic obstructive pulmonary disease, unspecified (principal)

== ENCOUNTER 2020-11-15 06:55 | Emergency (ER) | payer MEDICARE, OTHER ==
[~2020-11-15] VITALS: Ht 154.9 cm; Wt 81.8 kg
[~2020-11-15 06:55] MED LIST changes: -DOXY100C37 PO; +DOXY1CAP62 PO; +OMEP40CA4 PO; -OMEP40CA97 PO
[2020-11-15] MEDS ORDERED: CEPHALEXIN 500 MG CAP PO ONE (08:45)
[2020-11-15 08:46] LABS: BASO # 0.1 10^3/uL (0.0-0.2); BASO % 0.7 % (0.0-1.0); EOS # 0.4 10^3/uL (0.0-0.5); EOS % 4.5 % (0.0-3.0); HEMATOCRIT 41.8 % (36.0-47.0); HEMOGLOBIN 13.5 g/dl (12.0-15.5); LYMPH % 21.9 % (24.0-44.0); MEAN CORPUSCULAR HEMOGLOBIN 30.1 pg (27.0-33.0); MEAN CORPUSCULAR HGB CONC 32.3 g/dl (32.0-36.5); MEAN CORPUSCULAR VOLUME 93.3 fl (80.0-96.0); MONO # 0.7 10^3/uL (0.0-0.8); MONO % 7.6 % (2.0-8.0); PLATELET COUNT, AUTOMATED 256 10^3/uL (150-450); RED BLOOD COUNT 4.48 10^6/uL (4.00-5.40); WHITE BLOOD COUNT 9.2 10^3/uL (4.0-10.0)
[2020-11-15] MEDS ORDERED: CEPH500C PO (08:46)
[2020-11-15] MEDS ORDERED: BACITRACIN OINTMENT 30GM TUBE TOP ONE (09:20)
[2020-11-15 09:34] VITALS: BP 155/85
== END 2020-11-15 10:15 | disposition home or self-care (01) ==
LOC: M ED 06:55
DX: L03.114 Cellulitis of left upper limb (principal); I10 Essential (primary) hypertension; E78.5 Hyperlipidemia, unspecified; K21.9 Gastro-esophageal reflux disease without esophagitis; R00.1 Bradycardia, unspecified; Z87.891 Personal history of nicotine dependence; Z79.82 Long term (current) use of aspirin; Z79.899 Other long term (current) drug therapy; Z88.1 Allergy status to other antibiotic agents; Z88.2 Allergy status to sulfonamides

== ENCOUNTER 2020-12-02 06:20 | Emergency (ER) | payer MEDICARE, OTHER ==
[~2020-12-02] VITALS: Ht 152.4 cm; Wt 82.0 kg
[~2020-12-02 06:20] MED LIST changes: +CEPH500C PO
[2020-12-02] MEDS ORDERED: ACET1TAB16 (07:14)
[2020-12-02] MEDS ORDERED: BUPR150T12 (07:14)
[2020-12-02] MEDS ORDERED: BACIOIN5 OP (07:42)
[2020-12-02] MEDS ORDERED: DOXY1CAP62 PO (07:42)
[2020-12-02] MEDS ORDERED: TRIA1CR80 TOP (07:42)
[2020-12-02 07:52] VITALS: BP 145/70
== END 2020-12-02 07:54 | disposition home or self-care (01) ==
LOC: M ED 06:20
DX: L03.114 Cellulitis of left upper limb (principal); J44.9 Chronic obstructive pulmonary disease, unspecified; Z79.82 Long term (current) use of aspirin; Z79.899 Other long term (current) drug therapy; Z88.1 Allergy status to other antibiotic agents; Z88.2 Allergy status to sulfonamides

== ENCOUNTER 2021-04-24 13:27 | Outpatient (CLI) | payer MEDICARE, OTHER ==
[~2021-04-24] VITALS: Ht 152.4 cm; Wt 82.0 kg
[~2021-04-24 13:27] MED LIST changes: +ACET1TAB16; +BACIOIN5 OP; +BUPR150T12; +DOXY-443 PO; -DOXY1CAP62 PO; +TRIA1CR80 TOP
[2021-04-24] MEDS ORDERED: ZOLEDRONIC ACID 5 MG in IV 1 EA IV ONE (13:30)
[2021-04-24 13:45] VITALS: BP 136/63
[2021-04-24 14:40] VITALS: BP_SYST 136; BP_SYST 146; BP_DIAS 66; BP_DIAS 85
== END 2021-04-24 14:40 | disposition home or self-care (01) ==
LOC: M INFU 13:27
PROVIDERS: ATTEND Internal Medicine
DX: M81.0 Age-related osteoporosis without current pathological fracture (principal); Z88.1 Allergy status to other antibiotic agents; Z88.2 Allergy status to sulfonamides
CPT/HCPCS: 96365; J3489

== ENCOUNTER 2021-10-09 17:21 | Emergency (ER) | payer MEDICARE, OTHER ==
[~2021-10-09] VITALS: Ht 152.4 cm; Wt 80.7 kg
[~2021-10-09 17:21] MED LIST changes: -ACET1TAB16; +ACET300T48; -DOXY150C PO; +DOXY150C3 PO
[2021-10-09] MEDS ORDERED: HYDROCORTISONE 1% OINTMENT 30GM TOP STA (18:47)
[2021-10-09] MEDS ORDERED: predniSONE 20 MG TAB PO ONE (18:50)
[2021-10-09] MEDS ORDERED: [UNRECOGNIZED DRUG - CODE] EX (19:41)
[2021-10-09] MEDS ORDERED: PRED20TA PO (19:41)
[2021-10-09 19:50] VITALS: BP 149/72
== END 2021-10-09 19:50 | disposition home or self-care (01) ==
LOC: M ED 17:21
DX: L29.9 Pruritus, unspecified (principal); F17.200 Nicotine dependence, unspecified, uncomplicated; Z79.82 Long term (current) use of aspirin; Z79.899 Other long term (current) drug therapy; Z88.1 Allergy status to other antibiotic agents; Z88.2 Allergy status to sulfonamides
CPT/HCPCS: 99283; J7512

== ENCOUNTER 2021-12-10 13:38 | Outpatient (RCR) | payer MEDICARE, OTHER ==
[~2021-12-10 13:38] MED LIST changes: +[UNRECOGNIZED DRUG - CODE] EX
== END 2022-01-06 ==
LOC: M PT 13:38
PROVIDERS: ATTEND Internal Medicine
DX: M19.90 Unspecified osteoarthritis, unspecified site (principal); J44.9 Chronic obstructive pulmonary disease, unspecified

== ENCOUNTER → 2022-03-24 | Outpatient (CLI) | payer MEDICARE, OTHER | LOC: M WHC 13:32 | PROVIDERS: ATTEND Internal Medicine | DX: M85.89 Other specified disorders of bone density and structure, multiple sites (principal) ==

== ENCOUNTER 2022-04-26 13:15 | Outpatient (CLI) | payer MEDICARE, OTHER ==
[~2022-04-26] VITALS: Ht 157.5 cm; Wt 79.5 kg
[2022-04-26 13:15] VITALS: BP 120/58
[2022-04-26 13:55] VITALS: BP 106/55
[2022-04-26] MEDS ORDERED: ZOLEDRONIC ACID 5 MG in IV 1 EA IV ONE (14:00)
== END 2022-04-26 14:35 | disposition home or self-care (01) ==
LOC: M INFU 13:15
PROVIDERS: ATTEND Internal Medicine
DX: M85.9 Disorder of bone density and structure, unspecified (principal); Z88.1 Allergy status to other antibiotic agents; Z88.2 Allergy status to sulfonamides
CPT/HCPCS: 96365; J3489

== ENCOUNTER 2022-08-28 12:04 | Emergency (ER) | payer MEDICARE, OTHER ==
[~2022-08-28] VITALS: Ht 154.9 cm; Wt 67.7 kg
[2022-08-28 13:30] VITALS: BP 122/55
[2022-08-28 13:42] LABS: BASO # 0.1 10^3/uL (0.0-0.2); BASO % 0.6 % (0.0-1.0); EOS # 0.4 10^3/uL (0.0-0.5); EOS % 3.7 % (0.0-3.0); HEMATOCRIT 37.8 % (36.0-47.0); HEMOGLOBIN 12.3 g/dl (12.0-15.5); LYMPH # 2.3 10^3/uL (1.5-5.0); LYMPH % 21.5 % (24.0-44.0); MEAN CORPUSCULAR HEMOGLOBIN 30.1 pg (27.0-33.0); MEAN CORPUSCULAR HGB CONC 32.5 g/dl (32.0-36.5); MEAN CORPUSCULAR VOLUME 92.6 fl (80.0-96.0); MONO # 0.6 10^3/uL (0.0-0.8); MONO % 5.5 % (2.0-8.0); NEUTROPHILS # 7.2 10^3/uL (1.5-8.5); NEUTROPHILS % 68.4 % (36.0-66.0); PLATELET COUNT, AUTOMATED 327 10^3/uL (150-450); RED BLOOD COUNT 4.08 10^6/uL (4.00-5.40); WHITE BLOOD COUNT 10.5 10^3/uL (4.0-10.0)
[2022-08-28 14:00] LABS: ALBUMIN 3.3 G/DL (3.2-5.2); ALKALINE PHOSPHATASE 69 U/L (46-116); ALT/SGPT 11 U/L (7.0-40); AST/SGOT 16 U/L (<34); BILIRUBIN,TOTAL 0.2 MG/DL (0.3-1.2); BLOOD UREA NITROGEN 14 MG/DL (9-23); CALCIUM LEVEL 8.6 MG/DL (8.3-10.6); CARBON DIOXIDE LEVEL 26 MMOL/L (20-31); CHLORIDE LEVEL 107 MMOL/L (98-107); CK-MB VALUE MASS < 1.0 NG/ML (<3.6); CPK CREATINE PHOSPHOKINASE 56 U/L (34-145); CREATININE FOR GFR 0.69 MG/DL (0.55-1.30); GLOMERULAR FILTRATION RATE > 60.0 (>32); GLUCOSE, FASTING 99 MG/DL (74-106); MB/CK RELATIVE INDEX 1.78 (< OR =4); POTASSIUM SERUM 3.4 MMOL/L (3.5-5.1); SODIUM LEVEL 140 MMOL/L (136-145); TOTAL PROTEIN 6.5 G/DL (5.7-8.2)
[2022-08-28] MEDS: IPRATROPIUM 0.5MG/ALBUTEROL 2.5MG INH SOL UD 3ML (DUONEB) NEB PRN (14:47)
[2022-08-28 16:09] VITALS: O2SAT 92
[2022-08-28] MEDS ORDERED: BENZ200C70 PO (16:29)
== END 2022-08-28 16:48 | disposition home or self-care (01) ==
LOC: M ED 12:04
DX: J21.1 Acute bronchiolitis due to human metapneumovirus (principal); J44.9 Chronic obstructive pulmonary disease, unspecified; E78.00 Pure hypercholesterolemia, unspecified; K21.9 Gastro-esophageal reflux disease without esophagitis; M85.80 Other specified disorders of bone density and structure, unspecified site; Z79.82 Long term (current) use of aspirin; Z79.899 Other long term (current) drug therapy; Z88.1 Allergy status to other antibiotic agents; Z88.2 Allergy status to sulfonamides

== ENCOUNTER 2024-01-30 12:26 | Emergency (ER) | payer MEDICARE, OTHER ==
[~2024-01-30] VITALS: Ht 154.9 cm; Wt 77.0 kg
[~2024-01-30 12:26] MED LIST changes: +BENZ200C70 PO; +DOXY-323 PO; -DOXY-443 PO; -DOXY150C3 PO; +DOXY150C5 PO; -GERI8.6T PO; +SENN-193 PO
[2024-01-30 12:45] VITALS: TEMP 96.9
[2024-01-30 15:53] VITALS: O2SAT 86
[2024-01-30 15:56] LABS: AMPHETAMINES LEVEL URINE NEGATIVE (NEGATIVE); CANNABINOIDS URINE NEGATIVE (NEGATIVE); METHADONE URINE NEGATIVE (NEGATIVE); OPIATES URINE NEGATIVE (NEGATIVE); PHENCYCLIDINE URINE NEGATIVE (NEGATIVE)
[2024-01-30 15:57] LABS: BARBITURATES URINE NEGATIVE (NEGATIVE); BENZODIAZEPINES URINE NEGATIVE (NEGATIVE); COCAINE METABOLITE URINE NEGATIVE (NEGATIVE)
[2024-01-30] MEDS: IPRATROPIUM 0.5MG/ALBUTEROL 2.5MG INH SOL UD 3ML (DUONEB) NEB ONE (16:02)
[2024-01-30 16:15] VITALS: BP 125/64
[2024-01-30 16:30] VITALS: O2SAT 91
== END 2024-01-30 16:58 | disposition home or self-care (01) ==
LOC: M ED 12:26
DX: S00.93XA Contusion of unspecified part of head, initial encounter (principal); S30.0XXA Contusion of lower back and pelvis, initial encounter; W01.198A Fall on same level from slipping, tripping and stumbling with subsequent striking against other object, initial encounter; M50.322 Other cervical disc degeneration at C5-C6 level; M85.88 Other specified disorders of bone density and structure, other site; J45.909 Unspecified asthma, uncomplicated; J44.9 Chronic obstructive pulmonary disease, unspecified; K21.9 Gastro-esophageal reflux disease without esophagitis; E78.5 Hyperlipidemia, unspecified; Z88.1 Allergy status to other antibiotic agents; Z88.2 Allergy status to sulfonamides; Y92.014 Private driveway to single-family (private) house as the place of occurrence of the external cause; Y93.89 Activity, other specified; Y99.9 Unspecified external cause status; Z79.82 Long term (current) use of aspirin; Z79.52 Long term (current) use of systemic steroids; Z79.899 Other long term (current) drug therapy

== ENCOUNTER → 2024-04-18 | Outpatient (CLI) | payer MEDICARE, OTHER ==
[~2024-04-18] MED LIST changes: -DOXY-323 PO; +DOXY-441 PO
== END ==
LOC: M RAD 10:18
PROVIDERS: ATTEND Internal Medicine Pulmonary Disease
DX: J44.9 Chronic obstructive pulmonary disease, unspecified (principal); J98.4 Other disorders of lung